=== PATIENT | female | born 1955 | race Hispanic/Latino ===

== ENCOUNTER 2017-02-22 11:23 | Day surgery (SDC) | payer OTHER ==
[~2017-02-22] VITALS: Ht 157.5 cm; Wt 69.0 kg
[~2017-02-22 11:23] MED LIST: ZOCOR40 MG PO
[2017-02-22 12:04] VITALS: BP 129/91
[2017-02-22 17:59] VITALS: BP 137/77
== END 2017-02-22 18:20 | disposition home or self-care (01) ==
LOC: SDC 11:23
DX: S83.252A Bucket-handle tear of lateral meniscus, current injury, left knee, initial encounter (principal); M17.12 Unilateral primary osteoarthritis, left knee; W50.2XXA Accidental twist by another person, initial encounter; Y93.89 Activity, other specified; Y92.89 Other specified places as the place of occurrence of the external cause; Y99.9 Unspecified external cause status; F17.200 Nicotine dependence, unspecified, uncomplicated; Z88.8 Allergy status to other drugs, medicaments and biological substances
CPT/HCPCS: C1713; J0171; J0690; J1100; J1170; J2405; J3010